=== PATIENT | male | born 1960 | race African-American/Black ===

== ENCOUNTER → 2017-11-03 | Outpatient (CLI) | payer BC, SELFPAY ==
[~2017-11-03] MED LIST: AMOCLA875 PO; SILSUL1TC TOP
[2017-11-03 14:27] LABS: Protein, Urine Quantitative 67.4 mg/dL (0.0-11.9)
== END | disposition home or self-care (01) ==
LOC: LAB 10:31
PROVIDERS: Family Medicine
DX: R80.9 Proteinuria, unspecified (principal)
CPT/HCPCS: 81050; 84156

== ENCOUNTER → 2018-03-01 | Outpatient (CLI) | payer BC, SELFPAY ==
[2018-03-01 14:01] LABS: Bacteria Few /hpf; Red Blood Cells, Urine 0-2 /hpf (0-2); Squamous Epithelial Cells Few /hpf (Few); White Blood Cells, Urine 0-2 /hpf (0-5)
[2018-03-01 14:09] LABS: Protein, Urine Random 80.2 mg/dL (0.0-11.9)
== END ==
LOC: OLS 11:22 → LAB SHORT 11:22
PROVIDERS: Internal Medicine
DX: R80.9 Proteinuria, unspecified (principal)
CPT/HCPCS: 81015; 82570; 84156

== ENCOUNTER → 2018-03-10 | Outpatient (CLI) | payer BC, SELFPAY ==
[2018-03-10 13:33] LABS: Creatinine Urine 85.4 mg/dL (27.00-270.00); Protein, Urine Quantitative 58.2 mg/dL (0.0-11.9)
== END ==
LOC: LAB 13:12 → LAB SHORT 13:12
PROVIDERS: Internal Medicine
DX: R80.9 Proteinuria, unspecified (principal)
CPT/HCPCS: 81050; 82570; 84156

== ENCOUNTER 2018-04-05 10:24 | Day surgery (SDC) | payer BC, SELFPAY ==
[2018-04-05 15:13] LABS: Performing Lab SYMBIODX; Test Name KIDNEY BX
== END 2018-04-05 13:50 | disposition home or self-care (01) ==
LOC: CT 10:24
PROVIDERS: Internal Medicine; Radiology Diagnostic Radiology
PROC: 0TB13ZX Excision of Left Kidney, Percutaneous Approach, Diagnostic (ICD-10-PCS; principal; 2018-04-05 12:00)
DX: I12.9 Hypertensive chronic kidney disease with stage 1 through stage 4 chronic kidney disease, or unspecified chronic kidney disease (principal); N18.3 Chronic kidney disease, stage 3 (moderate); Z87.891 Personal history of nicotine dependence; R80.9 Proteinuria, unspecified; E78.2 Mixed hyperlipidemia
CPT/HCPCS: 50200; 77012; 88329